=== PATIENT | male | born 1980 | race Caucasian/White ===

== ENCOUNTER → 2017-04-05 | Outpatient (CLI) | payer OTHER ==
[2017-04-05 12:36] LABS: Anion Gap 10 mmol/L; Blood Urea Nitrogen 16 mg/dL (9-20); Calcium 9.2 mg/dL (8.4-10.2); Carbon Dioxide 28 mmol/L (22-30); Chloride 105 mmol/L (98-107); Glucose 84 mg/dL (74-99); Non-African American GFR(MDRD) >60 (>60 ml/min/1.73 sqM); Potassium 4.2 mmol/L (3.5-5.1); Sodium 143 mmol/L (137-145)
[2017-04-05 13:25] LABS: Vitamin B12 521 pg/mL (239-931)
== END | disposition home or self-care (01) ==
LOC: LABWHC1 12:02
PROVIDERS: ATTEND Psychiatry & Neurology Neurology
DX: R53.83 Other fatigue (principal); R53.81 Other malaise
CPT/HCPCS: 36415; 80048; 82306; 82607; 83519; 86255

== ENCOUNTER → 2017-04-10 | Outpatient (CLI) | payer OTHER ==
--- NOTE | 2017-04-10 22:15 | MR ---
EXAMINATION TYPE: MR brain wo con DATE OF EXAM: 04/10/2017 COMPARISON: NONE HISTORY: Paresthesia of skin, facial numbness CONTRAST: Performed utilizing 0 mL intravenous MultiHance gadolinium contrast. TECHNIQUE: Multiplanar, multiecho imaging on a 3.0 Cari magnet is performed through the brain. Stud y is performed within 24 hours of arrival to the hospital. The craniovertebral junction is normal. The pituitary is normal. Diffusion-weighted imaging is performed. No abnormal hyperintensity is present to suggest an acute i ntracranial infarct or acute ischemic change. Several periventricular and centrum semiovale hyperintensities are present, likely on the basis of ch ronic white matter ischemic change . This is greater than expected for the patient age. Differential should also include Lyme disease, multiple sclerosis vasculitis within the differential. The largest of these lesions is within the left hammer radiata trilobar region and measures 0.4 cm in diameter. Ventricles and sulci are appropriate for the patient age. IMPRESSIONS: 1. Scattered punctate hyperintensities within the deep white matter discussed above. This is greater than expected for the patient age. Differential should include, but is not limited to, multiple scler osis, Lyme disease, vasculitis, migraine headaches.
== END | disposition home or self-care (01) ==
LOC: RADMRIMAIN 10:49
PROVIDERS: ATTEND Psychiatry & Neurology Neurology
DX: R90.89 Other abnormal findings on diagnostic imaging of central nervous system (principal); R20.2 Paresthesia of skin
CPT/HCPCS: 70551

== ENCOUNTER 2017-05-10 08:02 | Day surgery (SDC) | payer OTHER ==
[2017-05-08 15:35] VITALS: BMI 21.7
[2017-05-10] MEDS ORDERED: LACTATED RINGERS 1,000 ML IV SCH (08:30)
[2017-05-10 08:43] VITALS: RESP 16; TEMP 97.7
--- NOTE | 2017-05-10 09:51 | P.PCN ---
Date of Procedure: 05/10/17 Surgeon: Theron England Pathology: none sent Condition: stable Disposition: PACU Description of Procedure: PREOPERATIVE DIAGNOSIS: 1-persistent paresthesias, rule out multiple sclerosis POSTOPERATIVE DIAGNOSIS: same PROCEDURE 1. 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 Hill. No use of blood thinners. PROCEDURE DESCRIPTION / TECHNIQUE: The patient was seen and identified in the preoperative area. Risks, benefits, complications, and alternatives were discussed with the patient, including but not limited to bleeding, infection, nerve damage, allergic reactions to medications, and spinal headache. The patient agreed to proceed with the procedure and signed the consent after all questions were answered. Vital signs were stable. Patient was taken to the procedure room and time out was completed to confirm patient position, procedure, area of pain, and allergies. The patient was placed in the sitting position on procedure table with help from nursing staff. The lumbosacral area was prepped and draped in the usual sterile fashion. Vital signs were closely monitored during the procedure. After localization with 1% lidocaine, a 25-gauge 3.5-inch spinal needle was placed in the L4-L5 interspace. Stylet was removed and clear cerebrospinal fluid was obtained. 13 ml CSF was removed and put into four tubes (4 ml, 4 ml, 4 ml, and 1 ml), which were later sent to the lab. COMMENTS: None DISPOSITION / PLANS: As the fluid was being collected, the patient began to complain of severe nausea but did not vomit. His fluids were increased and Zofran 4 mg IV was administered. Although he was still communicating with staff , his heart rate and blood pressure was found to be low and he appeared pale. The CSF collection was cut short, the needle was removed, and the patient was placed supine in the Trendelenburg position in the procedure room. I presumed this to be a vasovagal episode and administered ephedrine 10 mg IV myself. The patient's color began to return and his blood pressure and heart rate improved significantly and he stated that he felt significantly better. The patient was then transferred to the recovery area in a stable condition for observation. There was no evidence of lower extremity motor or sensory deficit after the procedure. Patient was discharged from the recovery room after meeting discharge criteria. Home discharge instructions were given to the patient by the staff. The patient was reexamined prior to discharge and there were no issues. The patient will follow up with Dr. Hill as scheduled to review LP results.
[2017-05-10 10:34] VITALS: BP 106/56; PULSE 69
[2017-05-10 11:12] LABS: ALT 43 U/L (21-72); AST 23 U/L (17-59)
[2017-05-10 11:15] LABS: Rheumatoid Factor, Qnt <9 IU/mL (<12)
[2017-05-10 12:11] LABS: Glucose,CSF 53 mg/dL (40-70)
[2017-05-10 13:00] LABS: Appearance,CSF Clear
[2017-05-10 15:41] LABS: Treponemal Ab Non-Reactive (Non-Reactive)
[2017-05-10 18:14] LABS: ANA w/Reflex to Titer NEGATIVE (NEGATIVE); RNP AB Interpretation NEGATIVE (NEGATIVE)
[2017-05-11 13:46] LABS: Immunoglobulin G 996 mg/dL (700 - 1600)
[2017-05-12 10:00] LABS: Lyme IgG/IgM 0.1 Index; Lyme IgG/IgM Interp NEGATIVE (NEGATIVE)
== END 2017-05-10 11:10 | disposition home or self-care (01) ==
LOC: ORPAIN 08:02
PROVIDERS: ATTEND Anesthesiology
DX: R20.0 Anesthesia of skin (principal); Z88.2 Allergy status to sulfonamides
CPT/HCPCS: 62270; 82040; 82042; 82164; 82784; 82945; 83873; 83916; 84157; 84439; 84443; 84450; 84460; 85613; 85730; 86038; 86225; 86235; 86431; 86592; 86618; 86780; 87476; 88108; 89050; 99152

== ENCOUNTER 2017-05-13 16:39 | Emergency (ER) | payer OTHER ==
[2017-05-13] MEDS ORDERED: HYDROmorphone 1 MG/ML 1 ML SYRINGE IVP STA (17:05)
[2017-05-13] MEDS ORDERED: SODIUM CHLORIDE 0.9% 1,000 ML IV STA (17:05)
[2017-05-13] MEDS ORDERED: METOCLOPRAMIDE 5 MG/ML 2 ML VIAL IVP STA (17:05)
--- NOTE | 2017-05-13 17:09 | ED ---
General Adult HPI - General Chief complaint: Headache Stated complaint: Headache/Numbness Time Seen by Provider: 05/13/17 16:53 Source: patient, family, RN notes reviewed Mode of arrival: ambulatory Limitations: no limitations - History of Present Illness Initial comments: Patient is a pleasant 36-year-old male presenting to the emergency Department with paresthesias. Patient has had paresthesias for the past couple of months from his mouth to his lower neck. Patient had an MRI showing some lesions. Patient did have lower puncture done 3 days ago. Since that time patient has had headaches however headaches have not been severe. Headaches are positional. Patient has had some blurry vision. Paresthesias have extended to his arms. Patient has been more fatigued than normal. - Related Data Home Medications Medication Instructions Recorded Confirmed ALPRAZolam [Xanax] 0.5 mg PO HS PRN 05/13/17 05/13/17 Naproxen [Naprosyn] 375 mg PO Q12HR PRN 05/13/17 05/13/17 Allergies Allergy/AdvReac Type Severity Reaction Status Date / Time sulfamethoxazole AdvReac Rash/Hives Verified 05/13/17 16:58 [From Bactrim] trimethoprim [From Bactrim] AdvReac Rash/Hives Verified 05/13/17 16:58 Review of Systems ROS Statement: Those systems with pertinent positive or pertinent negative responses have been documented in the HPI. ROS Other: All systems not noted in ROS Statement are negative. Constitutional: Denies: fever Eyes: Denies: eye pain ENT: Denies: ear pain Respiratory: Denies: cough Cardiovascular: Denies: chest pain Endocrine: Reports: fatigue Gastrointestinal: Denies: abdominal pain Genitourinary: Denies: dysuria Musculoskeletal: Denies: back pain Skin: Denies: rash Neurological: Reports: headache, paresthesias. Denies: confusion Past Medical History Past Medical History: No Reported History Additional Past Medical History / Comment(s): numbness in face History of Any Multi-Drug Resistant Organisms: None Reported Past Surgical History: Orthopedic Surgery Additional Past Surgical History / Comment(s): neck cyst removed, left knee arthroscopy; left ear benign cyst removed Past Anesthesia/Blood Transfusion Reactions: No Reported Reaction Past Psychological History: No Psychological Hx Reported Smoking Status: Former smoker Past Alcohol Use History: None Reported Past Drug Use History: None Reported - Past Family History Father Family Medical History: Cancer Mother Family Medical History: Cancer General Exam Limitations: no limitations General appearance: alert, in no apparent distress Head exam: Present: atraumatic Eye exam: Present: normal appearance, PERRL, EOMI. Absent: nystagmus ENT exam: Present: normal oropharynx Neck exam: Present: normal inspection Respiratory exam: Present: normal lung sounds bilaterally Cardiovascular Exam: Present: regular rate, normal rhythm Expanded Peripheral pulses: 2+: Dorsalis Pedis (R), Dorsalis Pedis (L) GI/Abdominal exam: Present: soft. Absent: tenderness Extremities exam: Present: normal inspection. Absent: pedal edema, calf tenderness Neurological exam: Present: alert, CN II-XII intact. Absent: motor sensory deficit Expanded Speech: Present: fluid speech Cranial nerves: EOM's Intact: Normal, Facial Sensation: Normal Cerebellar function: Finger to Nose: Normal Sensory exam: Upper Extremity Light Touch: Normal, Lower Extremity Light Touch: Normal Motor strength exam: RUE: 5, LUE: 5, RLE: 5, LLE: 5 Eye Response: (4) open spontaneously Motor Response: (6) obeys commands Verbal Response: (5) oriented Psychiatric exam: Present: normal affect, normal mood Skin exam: Present: normal color Course Vital Signs 05/13/17 16:44 Temperature 98.3 F Pulse Rate 80 Respiratory 18 Rate Blood Pressure 167/100 O2 Sat by Pulse 99 Oximetry Medical Decision Making - Medical Decision Making Patient reevaluated and resting comfortably in bed. Patient states the pressure from his head is resolved. Patient states his vision has improved however not quite 100% normal. Patient states he still is paresthesias of both arms. Patient is updated on results and need for follow-up, specifically with his neurologist. - Lab Data Result diagrams: 05/13/17 17:34 05/13/17 17:34 Lab Results 05/13/17 05/13/17 Range/Units 17:34 17:34 WBC 4.9 (3.8-10.6) k/uL RBC 4.18 L (4.30-5.90) m/uL Hgb 13.3 (13.0-17.5) gm/dL Hct 38.9 L (39.0-53.0) % MCV 93.0 (80.0-100.0) fL MCH 31.8 (25.0-35.0) pg MCHC 34.2 (31.0-37.0) g/dL RDW 13.9 (11.5-15.5) % Plt Count 181 (150-450) k/uL Neutrophils % 58 % Lymphocytes % 34 % Monocytes % 5 % Eosinophils % 1 % Basophils % 0 % Neutrophils # 2.8 (1.3-7.7) k/uL Lymphocytes # 1.7 (1.0-4.8) k/uL Monocytes # 0.3 (0-1.0) k/uL Eosinophils # 0.1 (0-0.7) k/uL Basophils # 0.0 (0-0.2) k/uL Sodium 142 (137-145) mmol/L Potassium 4.1 (3.5-5.1) mmol/L Chloride 107 (98-107) mmol/L Carbon Dioxide 26 (22-30) mmol/L Anion Gap 9 mmol/L BUN 17 (9-20) mg/dL Creatinine 0.87 (0.66-1.25) mg/dL Est GFR (MDRD) Af Amer >60 (>60 ml/min/1.73 sqM) Est GFR (MDRD) Non-Af >60 (>60 ml/min/1.73 sqM) Glucose 83 (74-99) mg/dL Calcium 9.3 (8.4-10.2) mg/dL Magnesium 2.1 (1.6-2.3) mg/dL Total Bilirubin 0.3 (0.2-1.3) mg/dL AST 20 (17-59) U/L ALT 41 (21-72) U/L Alkaline Phosphatase 66 (38-126) U/L Total Protein 6.9 (6.3-8.2) g/dL Albumin 4.1 (3.5-5.0) g/dL - Radiology Data Radiology results: image reviewed (Chest x-ray shows no acute process) Disposition Clinical Impression: Headache, Paresthesia Disposition: HOME SELF-CARE Condition: Stable Instructions: Acute Headache (ED), Paresthesia (ED) Additional Instructions: Please follow-up with your neurologist and primary care physician this week. Return for weakness, speech problems, confusion, worsening or changing symptoms or other concerns. Referrals: Tray Cha DO [Primary Care Provider] - 1-2 days Joe Hill MD [STAFF PHYSICIAN] - 1-2 days Time of Disposition: 18:24
[2017-05-13 17:51] LABS: Basophils % (A) 0 %; CH 32.6; CHCM 35.3; Eosinophils # (A) 0.1 k/uL (0-0.7); Eosinophils % (A) 1 %; HCT 38.9 % (39.0-53.0); HDW 2.73; HGB 13.3 gm/dL (13.0-17.5); Luc # (Auto) 0.08; Luc % (Auto) 2; Lymphocytes # (A) 1.7 k/uL (1.0-4.8); Lymphocytes % (A) 34 %; MCH 31.8 pg (25.0-35.0); MCHC 34.2 g/dL (31.0-37.0); Mean Platelet Volume 7.1; Monocytes # (A) 0.3 k/uL (0-1.0); Monocytes % (A) 5 %; Neutrophils # (A) 2.8 k/uL (1.3-7.7); Neutrophils % (A) 58 %; RBC 4.18 m/uL (4.30-5.90); RDW 13.9 % (11.5-15.5); WBC 4.9 k/uL (3.8-10.6); WBC (Perox) 4.76
[2017-05-13 17:59] LABS: ALT 41 U/L (21-72); AST 20 U/L (17-59); Alkaline Phosphatase 66 U/L (38-126); Anion Gap 9 mmol/L; Blood Urea Nitrogen 17 mg/dL (9-20); Calcium 9.3 mg/dL (8.4-10.2); Carbon Dioxide 26 mmol/L (22-30); Chloride 107 mmol/L (98-107); Glucose 83 mg/dL (74-99); Magnesium 2.1 mg/dL (1.6-2.3); Non-African American GFR(MDRD) >60 (>60 ml/min/1.73 sqM); Potassium 4.1 mmol/L (3.5-5.1); Sodium 142 mmol/L (137-145); Total Bilirubin 0.3 mg/dL (0.2-1.3); Total Protein 6.9 g/dL (6.3-8.2)
--- NOTE | 2017-05-13 18:09 | XR ---
EXAMINATION TYPE: XR chest 2V DATE OF EXAM: 05/13/2017 COMPARISON: NONE HISTORY: Fatigue TECHNIQUE: Frontal and lateral views of the chest are obtained. FINDINGS: Heart and mediastinum are normal. Lungs are clear. Diaphragm is normal. Bony thorax is int act. IMPRESSION: Normal chest
[2017-05-13 18:49] VITALS: BP 118/53; PULSE 55; RESP 20; TEMP 98
== END 2017-05-13 18:48 | disposition home or self-care (01) ==
LOC: EC 16:39
DX: R51 Headache (principal); R20.2 Paresthesia of skin; H53.8 Other visual disturbances; Z87.891 Personal history of nicotine dependence; Z88.1 Allergy status to other antibiotic agents
CPT/HCPCS: 36415; 80053; 83735; 85025; 71020; 99284; 96374; 96375; 96361; J2765; J1170